=== PATIENT | male | born 1945 | race Caucasian/White ===

== ENCOUNTER 2022-09-26 09:45 | Outpatient (CLI) | payer MEDICARE | END 2022-09-26 09:46 | disposition home or self-care (01) | LOC: CSHMRI 09:45 | PROVIDERS: ATTEND Urology | DX: R97.20 Elevated prostate specific antigen [PSA] (principal) | CPT/HCPCS: 72197 ==

== ENCOUNTER 2023-11-04 09:16 | Outpatient (CLI) | payer MEDICARE ==
[2023-11-04] MEDS ORDERED: Magnevist 469MG/ML 20 ML VIAL ONE (11:37)
== END 2023-11-04 09:17 | disposition home or self-care (01) ==
LOC: CSHMRI 09:16
PROVIDERS: ATTEND Urology
DX: R97.20 Elevated prostate specific antigen [PSA] (principal); N40.2 Nodular prostate without lower urinary tract symptoms; R93.89 Abnormal findings on diagnostic imaging of other specified body structures
CPT/HCPCS: 72197; 82565